=== PATIENT | female | born 1985 | race African-American/Black ===

== ENCOUNTER 2021-03-21 03:43 | Inpatient (IN) | payer MEDICAID ==
[~2021-03-21] VITALS: Ht 162.6 cm; Wt 103.5 kg
[~2021-03-21 03:43] MED LIST: ACET1TAB43 PO; DOCU100C37 PO; FERR325T18 PO; IBUP-1773 PO; LABE200T7 PO; PREN1TAB71 PO; VALA500T4 PO
[2021-03-21] MEDS ORDERED: NITRO DRIP 25000 MCG/D5W 250 ML IV ONE (05:15)
[2021-03-21 07:42] LABS: BASOPHILS % (AUTO) 0 % (0-10); EOSINOPHILS # (AUTO) 0.2 10^3/uL (0.0-0.3); EOSINOPHILS % (AUTO) 2 % (0-10); HEMATOCRIT 39 % (35-52); HEMOGLOBIN 12.6 g/dL (11.5-16.0); LYMPHOCYTES # (AUTO) 2.9 10^3/uL (1.0-4.0); LYMPHOCYTES % (AUTO) 32 % (12-44); MEAN CORPUSCULAR HEMOGLOBIN 29 pg (25-34); MEAN CORPUSCULAR HGB CONC 32 g/dL (32-36); MEAN CORPUSCULAR VOLUME 89 fL (80-99); MEAN PLATELET VOLUME 11.1 fL (9.0-12.2); MONOCYTES # (AUTO) 0.4 10^3/uL (0.0-1.0); MONOCYTES % (AUTO) 5 % (0-12); NEUTROPHILS # (AUTO) 5.5 10^3/uL (1.8-7.8); NEUTROPHILS % (AUTO) 61 % (42-75); PLATELET COUNT 230 10^3/uL (130-400); WHITE BLOOD COUNT 9.1 10^3/uL (4.3-11.0)
[2021-03-21 07:58] LABS: CALCIUM 8.6 MG/DL (8.5-10.1); CREATININE SERUM 0.82 MG/DL (0.60-1.30); POTASSIUM 3.7 MMOL/L (3.6-5.0)
[2021-03-21] MEDS: NITRO DRIP 25000 MCG/D5W 250 ML IV SCH (08:00)
[2021-03-21] MEDS ORDERED: ASPIRIN E.C. 81 MG (ECOTRIN) TAB PO SCH (09:00)
--- NOTE | 2021-03-21 09:21 | Consultation-Cardiology ---
HPI-Cardiology Cardiology Consultation: Date of Consultation 03/21/2021 Date of Admission 03/21/2021 Attending Physician Noemi Sheppard MD Admitting Physician No,Local Physician Consulting Physician JOSE E PAZ JR, MD HPI: Time Seen by a Provider: 09:17 Chief Complaint: Reason for consultation: Chest pain and abnormal troponin level. I had the pleasure of seeing Rachael in the intensive care unit at [facility] in [place], [place] this morning. She has a history of hypertension, chronic back pain, obesity, and cigarette smoking. She has no known history of coronary artery disease. 3 days ago she started having right shoulder pain. She has chronic right shoulder pain only this time the pain was worse. She could not lift her hand above her head. She was also feeling somewhat short of breath. She also had back pain all the way down to her lumbar area but not into her legs. She called into work for the next 2 days because she just was not fe eling well. The second day she started to feel better. Yesterday when she got out of bed she felt a fluttering sensation in her chest. She felt as though her heart was vibrating. This lasted for about 1 minute. She denied associated symptoms. She got ready for work and went to work. She was feeling okay at work but then started having sharp pains in the center of her chest. This felt like the center of her chest was being pinched. She was also having shooting pains up into the right side of her neck. She felt as though her blood pressure might be elevated but she did not actually check her blood pressure. She became concerned and went to an outside emergency room for further evaluation. Her blood pressure was markedly elevated at 260 mmHg systolic. She was given medication at the outside emergency room to lower her blood pressure and then her troponin level came back positive. She was then transferred to our hospital for further evaluation. Overnight, her chest discomfort seems to have resolved. She still has the right shoulder pain but this is better. She still has intermittent back pain. Her breathing is about the same. She thought her shortness of breath was because she had been smoking more cigarettes than usual. She denies paroxysmal nocturnal dyspnea, orthopnea, lightheadedness, syncope, or ankle edema. She denies using methamphetamine or cocaine. Certain portions of this document may have been dictated utilizing voice recognition technology. Inherent to this technology, typographical and grammatical errors may exist. As much as I am diligent to identify and correct these mistakes, some errors may remain in the document. Review of Systems-Cardiology Review of Systems Other comments Review of 10 organ systems is as per the history of present illness, otherwise negative. OUD-Tgksyd-Ujcmze Hx Patient Social History Smoking Status: Current Everyday Smoker 2nd Hand Smoke Exposure: No Have you traveled recently?: No Alcohol Use?: No Substance type: Marijuana Pt feels they are or have been: No Tobacco type used: Cigarettes Immunizations Up To Date Tetanus Booster (TDap): Less than 5yrs Past Medical History PMH As described under Assessment. Family Medical History Family Medical History: She is adopted. Family History: Patient reports no known family medical history. Allergies and Home Medications Allergies Coded Allergies: No Known Drug Allergies (Unverified , 11/13/15) Patient Home Medication List Home Medication List Reviewed: Yes Acetaminophen with Codeine (Acetaminophen-Cod #3 Tablet) 1 Each Tablet, 1-2 TAB PO Q4H PRN for MODERATE TO SEVERE PAIN Prescribed by: SHELLI BELLA on 11/14/15 1043 Docusate Sodium (Docusate Sodium) 100 Mg Capsule, 100 MG PO BID PRN for CONSTIPATION Prescribed by: SHELLI BELLA on 11/14/15 1043 Ferrous Sulfate (Ferrous Sulfate) 325 Mg Tablet, 325 MG PO DAILY@0700 Prescribed by: SHELLI BELLA on 11/14/15 1043 Ibuprofen (Ibuprofen) 600 Mg Tablet, 600 MG PO Q6H Prescribed by: SHELLI BELLA on 11/14/15 1043 Labetalol HCl (Labetalol HCl) 200 Mg Tablet, 200 MG PO BID Prescribed by: DEVAUGHN ARGUETA on 11/21/15 1017 Last Action: Last Taken Edited Discontinued Medications Vit/Iron Fumarate/FA ( Vitamin Tablet) 1 Each Tablet, 1 EACH PO DAILY, (Reported) Discontinued Reason: No Longer Taking Entered as Reported by: ODILIA SHAH on 11/13/15 0629 Last Action: Discontinued Exam Vital Signs Vital Signs Date Time Temp Pulse Resp B/P (MAP) Pulse Ox O2 Delivery O2 Flow Rate FiO2 03/21/21 08:00 71 19 172/101 95 Room Air 03/21/21 04:50 36.8 Physical Exam General: Alert. No acute distress. Well nourished and appears stated age. She is obese. Eye: Extraocular movements are intact. Conjunctivae are clear. There are no xanthelasma. HENT: Normocephalic. Atraumatic. Carotid pulsations 2/2 without bruits. Neck: Jugular venous pressure does not appear elevated. No thyromegaly appreciated. Respiratory: Lungs are clear to auscultation. Respirations are non-labored. Breath sounds are equal. Symmetrical chest wall expansion. Cardiovascular: Normal rate. Regular rhythm. No murmur. No gallop. Point of maximal impulse is not appear displaced. Good pulses equal in all extremities. No edema. Gastrointestinal: Soft. Normal bowel sounds. Skin: Skin turgor is normal. There is no pallor. Musculoskeletal: No kyphosis or scoliosis appreciated. Neurologic: Alert and oriented to person, place, time. Cranial nerves 3-12 appear grossly intact. The patient has good motor tone strength in the upper and lower extremities bilaterally. Psychiatric: Cooperative. Appropriate mood & affect. Labs Laboratory Tests Test 03/21/21 06:24 03/21/21 06:27 03/21/21 07:24 03/21/21 07:27 Range/Units White Blood Count 9.1 4.3-11.0 10^3/uL Red Blood Count 4.40 3.80-5.11 10^6/uL Hemoglobin 12.6 11.5-16.0 g/dL Hematocrit 39 35-52 % Mean Corpuscular Volume 89 80-99 fL Mean Corpuscular Hemoglobin 29 25-34 pg Mean Corpuscular Hemoglobin Concent 32 32-36 g/dL Red Cell Distribution Width 14.2 10.0-14.5 % Platelet Count 230 130-400 10^3/uL Mean Platelet Volume 11.1 9.0-12.2 fL Immature Granulocyte % (Auto) 0 % Neutrophils (%) (Auto) 61 42-75 % Lymphocytes (%) (Auto) 32 12-44 % Monocytes (%) (Auto) 5 0-12 % Eosinophils (%) (Auto) 2 0-10 % Basophils (%) (Auto) 0 0-10 % Neutrophils # (Auto) 5.5 1.8-7.8 10^3/uL Lymphocytes # (Auto) 2.9 1.0-4.0 10^3/uL Monocytes # (Auto) 0.4 0.0-1.0 10^3/uL Eosinophils # (Auto) 0.2 0.0-0.3 10^3/uL Basophils # (Auto) 0.0 0.0-0.1 10^3/uL Immature Granulocyte # (Auto) 0.0 0.0-0.1 10^3/uL Sodium Level 139 135-145 MMOL/L Potassium Level 3.7 3.6-5.0 MMOL/L Chloride Level 109 H 98-107 MMOL/L Carbon Dioxide Level 21 21-32 MMOL/L Anion Gap 9 5-14 MMOL/L Blood Urea Nitrogen 11 7-18 MG/DL Creatinine 0.82 0.60-1.30 MG/DL Estimat Glomerular Filtration Rate 95 BUN/Creatinine Ratio 13 Glucose Level 88 70-105 MG/DL Calcium Level 8.6 8.5-10.1 MG/DL Magnesium Level 2.0 1.6-2.4 MG/DL Troponin I 0.034 H <0.028 NG/ML Triglycerides Level 133 <150 MG/DL Cholesterol Level 167 < 200 MG/DL LDL Cholesterol Direct 133 H 1-129 MG/DL VLDL Cholesterol 27 5-40 MG/DL HDL Cholesterol 23 L 40-60 MG/DL ECG Impression ECG Comment Sinus rhythm with left atrial abnormality, nonspecific intraventricular conduction delay, left ventricular hypertrophy with strain pattern and poor R wave progression. Diagnosis/Problems Diagnosis/Problems (1) Chest pain Assessment & Plan: Exact etiology unclear. She does have elevated troponin levels but this is in the setting of an hypertensive emergency. She has risk factors of hypertension and cigarette smoking. I will obtain another troponin level later this morning. I will also obtain an echocardiogram. In light of the radiation of chest pain to her back or just the back pain itself, I will also have her undergo a CT angiogram of the chest and abdomen to exclude aortic dissection. I will start her on low strength aspirin. I will resume her labetalol but at a higher dose. We can taper off the nitroglycerin. If her troponin level continues to climb, then we may need to consider further evaluation with a cardiac catheterization. (2) Hypertensive emergency without congestive heart failure Assessment & Plan: She had markedly elevated blood pressure at the outside hospital. Her blood pressure has now improved on intravenous nitroglycerin. As above, I will increase her dose of labetalol which she was taking at home and transition her off IV nitroglycerin. We may need to add additional a ntihypertensive agents if her blood pressure remains elevated. (3) Troponin level elevated Assessment & Plan: Unclear whether or not this is non-ST elevation myocardial infarction. This could be a type II non-ST elevation myocardial infarction due to the severe hypertension at the outside hospital. We will proceed as above. (4) Abnormal ECG Assessment & Plan: Her electrocardiogram shows signs of left ventricular hypert rophy with repolarization abnormality versus possible ischemia and poor R wave progression. There is no evidence of a STEMI. We will proceed as above. (5) Primary hypertension Assessment & Plan: As above. (6) Obesity Assessment & Plan: She needs to work on weight loss. (7) Cigarette smoker Assessment & Plan: She needs to quit smoking. She was counseled in this regard. JOSE E PAZ JR, MD Mar 21, 2021 09:21
[2021-03-21] MEDS ORDERED: HOLD METFORMIN - RECEIVED CONTRAST 20 ML VIAL IV SCH (09:30)
[2021-03-21] MEDS ORDERED: NS 100 ML (IVPB) BAG IV ONE (09:30)
[2021-03-21] MEDS ORDERED: IOHEXOL 350 MG/ML 100 ML (OMNIPAQUE 350) VIAL IV ONE (09:30)
--- NOTE | 2021-03-21 10:17 | Diagnostic Imaging Report ---
Clinical Indication: Patient with hypertensive emergency with chest and back pain. Patient had lower back surgery. Exam: CT angiogram of the chest an abdomen performed with 83 cc Omnipaque 350 IV contrast. Coronal and oblique MIP images of the vasculature were created to better evaluate anatomy. Auto Exposure Controls were utilized during the CT exam to meet ALARA standards for radiation dose reduction. Comparison: None. Findings: There is a 13 mm low-density nodule involving the left thyroid lobe. There is no mediastinal, hilar or axillary lymphadenopathy. There is mild atelectasis involving the posterior aspects of both lungs. Otherwise, the lungs are clear. There is no pleural effusion or pneumothorax. Pulmonary arteries are unremarkable as visualized. There is motion artifact slightly obscuring the thoracic aorta. Three-vessel aortic arch is seen. The cervical left vertebral artery arises low from the proximal left subclavian artery. There is no thoracic aortic aneurysm or dissection. There is no extrathoracic soft tissue abnormality. Thoracic spine and rib bony structures are unremarkable. The abdominal aorta, celiac artery, SMA, bilateral renal arteries, RUT, bilateral common iliac arteries and proximal bilateral internal and external iliac arteries are patent with no significant stenosis, dissection, or aneurysm. The liver, spleen, pancreas, and adrenal glands are unremarkable. There are multiple gallstones throughout the gallbladder. The gallbladder is decompressed. Largest stone measures roughly 15 [address]. There is no [address] evidence of cholecystitis. Both kidneys are unremarkable with no hydronephrosis or mass. The visualized upper abdominal structures show no other significant abnormality. There is no intestinal obstruction. Appendix is unremarkable. There is no intra-abdominal free air or free fluid. There is no lymphadenopathy. The extra abdominal structures are unremarkable. IMPRESSION: 1: There is no evidence of pulmonary embolism. There is no evidence of thoracic or abdominal aortic aneurysm or dissection. Visualized vascular structures show no significant stenosis. 2: Mild bibasilar atelectasis. Otherwise, the lungs are clear. 3: There is a 13 mm low-density left thyroid lobe nodule. Nonemergent thyroid ultrasound would better evaluate. 4: Cholelithiasis with no CT evidence of cholecystitis. Dictated by: Dictated on workstation # [id number]
[2021-03-21] MEDS: LABETALOL 200 MG (NORMODYNE) TAB PO SCH ×2 (10:25→20:04)
[2021-03-21] MEDS: ASPIRIN E.C. 81 MG (ECOTRIN) TAB PO SCH (10:25)
--- NOTE | 2021-03-21 11:03 | History & Physical-Hospitalist ---
History of Present Illness HPI/Chief Complaint Rachael Pappas is a 36 year old female with PMH HTN who presented with chest pain. She went to the ER in [place]. She reports having a fluttering sensation in her chest yesterday. She says it radiated to her bilateral shoulders. This pain resolved but then she developed a sharp chest pain. She denies shortness of breath. She denies nausea and vomiting. She denies diaphoresis. She has high blood pressure but has not been taking her medication. She smokes cigarettes. She denies drinking and illicit drug use. Source: patient Exam Limitations: no limitations Date Seen 03/21/21 Time Seen by a Provider: 10:30 Attending Physician Noemi Cardoso MD PCP No,Local Physician Referring Physician Date of Admission Mar 21, 2021 at 04:42 Home Medications & Allergies Home Medications Reviewed patient Home Medication Reconciliation performed by pharmacy medication reconciliations analytical lab technician and/or nursing. Patients Allergies have been reviewed. Allergies Allergies Coded Allergies No Known Drug Allergies (Unverified11/13/15) Past Pighzyb-Iqeaki-Hbgdby Hx Patient Social History Tobacco Use?: Yes Tobacco type used: Cigarettes Smoking Status: Current Everyday Smoker Smokeless Tobacco Frequency: Never a User Use of E-Cig and/or Vaping dev: No Substance use?: No Substance type: Marijuana Substance frequency: Rarely Alcohol Use?: No Pt feels they are or have been: No Immunizations Up To Date Hepatitis A: No Hepatitis B: No PED Vaccines UTD: No Current Status status: No status: No Advance Directives: No Communicates: Verbally Primary Language: Macedonian Sensory deficits: Vision impairment Implanted or Applied Medical D: None Past Medical History Hypertension Sexually Transmitted Disease: Yes HIV/AIDS: No Adverse Reaction/Blood Tranf: No HSV as above Family Medical History Patient reports no known family medical history. No Pertinent Family Hx Review of Systems Constitutional: no symptoms reported EENTM: no symptoms reported Respiratory: no symptoms reported Cardiovascular: chest pain, palpitations Gastrointestinal: no symptoms reported Genitourinary: no symptoms reported Musculoskeletal: no symptoms reported Skin: no symptoms reported Psychiatric/Neurological: No Symptoms Reported Physical Exam Physical Exam Vital Signs Vital Signs - First Documented Capillary Refill : Height, Weight, BMI Height: 5'4.00" Weight: 180lbs. 0.0oz. 81.492102uu; 39.14 BMI Method: General Appearance: No Apparent Distress, Obese HEENT: PERRL/EOMI, Pharynx Normal Neck: Normal Inspection, Supple Respiratory: Lungs Clear, Normal Breath Sounds, No Respiratory Distress Cardiovascular: Regular Rate, Rhythm, No Edema, No Murmur Gastrointestinal: Normal Bowel Sounds, Non Tender, Soft Extremity: Normal Inspection, Non Tender, No Pedal Edema Neurologic/Psychiatric: Alert, Oriented x3, No Motor/Sensory Deficits, Normal Mood/Affect Skin: Normal Color, Warm/Dry Results Results/Procedures Labs Laboratory Tests 03/21/21 06:24 Patient resulted labs reviewed. Imaging: Reviewed Imaging Report Assessment/Plan Admission Diagnosis Hypertensive emergency Admission Status: Inpatient Order (span 2 midnights) Reason for Inpatient Admission: IV medications and possible cardiology intervention Assessment and Plan Hypertensive emergency Elevated troponin Started on IV Nitroglycerin Begin home dose Labetalol Troponin elevated Cardiology consulted Thyroid nodule CT revealed nodule Recommend outpatient follow up with ultrasound Cholelithiasis Asymptomatic Tobacco abuse Nicotine patch Obesity Clinically significant, no acute management needs DVT prophylaxis: Lovenox Diagnosis/Problems Diagnosis/Problems (1) Hypertensive emergency without congestive heart failure Status: Acute (2) Chest pain Status: Acute (3) Troponin level elevated Status: Acute (4) Primary hypertension Status: Acute (5) Obesity Status: Chronic (6) Cigarette smoker Status: Chronic NOEMI CARDOSO MD Mar 21, 2021 11:03
--- NOTE | 2021-03-21 11:08 | Tele-ICU Consult ---
History of Present Illness History of Present Illness Date Seen by Provider: Mar 21, 2021 Time Seen by Provider: 11:03 Date of Admission 03/21/21 History of Present Illness She is a 36-year-old -[place] female with past medical history of hypertension and obesity was transferred from [facility] due to chest pain. Apparently she is having chest pain for the last 3 days associated with the right shoulder pain. She also has a back pain. She went to [facility] where she was initially evaluated and EKG showed T wave inversions and troponin elevation and she is transferred to this institute for higher level of care. Now her chest pain is somewhat better. She was given Lovenox at [facility]. Today booster plant operator has seen her and evaluated for any dissection of the aorta with a CT angio of the abdomen and chest on the report of which is pending. But upon my review via computer I did not see any evidence of dissection. Currently she is resting somewhat comfortably with a little discomfort in the chest. She is getting IV nitroglycerin, aspirin. No telemetry ICU consult is requested. Patient has been a smoker 1 pack/day for several years. She has no known history of diabetes. She does not know the family history as she is adopted. Video visit made and discussed with patient and also with horticultural worker No Tele icu consult requested Allergies and Home Medications Allergies Coded Allergies: No Known Drug Allergies (Unverified , 11/13/15) Home Medications Acetaminophen with Codeine 1 Each Tablet, 1-2 TAB PO Q4H PRN for MODERATE TO SEVERE PAIN Prescribed by: SHELLI BELLA on 11/14/15 1043 Docusate Sodium 100 Mg Capsule, 100 MG PO BID PRN for CONSTIPATION Prescribed by: SHELLI BELLA on 11/14/15 1043 Ferrous Sulfate 325 Mg Tablet, 325 MG PO DAILY@0700 Prescribed by: SHELLI BELLA on 11/14/15 1043 Ibuprofen 600 Mg Tablet, 600 MG PO Q6H Prescribed by: SHELLI BELLA on 11/14/15 1043 Labetalol HCl 200 Mg Tablet, 200 MG PO BID Prescribed by: DEVAUGHN ARGUETA on 11/21/15 1017 Past Medical/Social/Family Hx Patient Social History Tobacco Use?: Yes Tobacco type used: Cigarettes Smoking Status: Current Everyday Smoker Smokeless Tobacco Frequency: Never a User Use of E-Cig and/or Vaping dev: No Substance use?: No Substance type: Marijuana Substance frequency: Rarely Alcohol Use?: No Pt stated abuse/neglect: No Immunizations Up To Date Influenza Vaccine Up-to-Date: No; Not Current Hepatitis A: No Hepatitis B: No TB Skin Test: Negative Current Status status: No status: No Advance Directives: No Communicates: Verbally Primary Language: Canadian Sensory deficits: Vision impairment Implanted or Applied Medical D: None Past Medical History HSV as above Review of Systems Constitutional: see HPI Other ROS PER ATTENDING Sepsis Event Evaluation Height, Weight, BMI Height: 5'4.00" Weight: 180lbs. 0.0oz. 81.442712ry; 39.14 BMI Method: Exam Exam Patient acknowledged, consented, and participated in this virtual visit which was conducted using real time audio/video Vital Signs Date Time Temp Pulse Resp B/P (MAP) Pulse Ox O2 Delivery O2 Flow Rate FiO2 03/21/21 10:00 72 17 186/110 97 Room Air 03/21/21 09:00 71 16 176/117 96 Room Air 03/21/21 08:00 71 19 172/101 95 Room Air 03/21/21 08:00 71 176/117 03/21/21 07:00 73 18 128/76 93 Room Air 03/21/21 07:00 74 03/21/21 06:15 181/115 03/21/21 06:00 69 19 181/115 95 Room Air 03/21/21 05:00 75 16 164/104 97 Room Air 03/21/21 04:50 99 Room Air 03/21/21 04:50 36.8 68 16 191/112 97 Room Air I & O 03/21/21 07:00 Intake Total 0 ml Balance 0 ml Height & Weight Height: 5'4.00" Weight: 180lbs. 0.0oz. 81.636574bl; 39.14 BMI Method: General Appearance: No Apparent Distress Other comments PER ATTENDING PHYSICIAN Results Lab Laboratory Tests 03/21/21 06:24 Assessment/Plan Assessment/Plan 1. Uncontrolled hypertension 2. Chest pain possibly due to non-STEMI 3. Morbid obesity 4. Rule out any dissection of her aorta. 5. Tobacco abuse disorder. Recommendations 1. Continue nitroglycerin and aspirin per cardiology Get an echocardiogram 3. Possible coronary angiogram per cardiology 4. Check hemoglobin A1c and lipid profile and keep LDL less than 70 5. Advised her to quit smoking and counseling done over the video visit. 6. Anticoagulation per cardiology once dissection of the aorta is ruled out. Critical Care: Critically Ill Patient Time spent with patient (mins): 35 ANNY MIRELES MD Mar 21, 2021 11:08
[2021-03-21] MEDS: ACETAMINOPHEN 325 MG TABLET PO PRN (12:58)
[2021-03-21] MEDS ORDERED: ENOXAPARIN 40 MG/0.4 ML (LOVENOX) SYR SC SCH (21:30)
[2021-03-21] MEDS ORDERED: NICOTINE 2 MG LOZENGE (COMMIT) MM PRN (21:30)
[2021-03-21] MEDS ORDERED: REGADENOSON 0.4 MG/5 ML SYR (LEXISCAN) IV ONE (21:45)
[2021-03-22] MEDS: ACETAMINOPHEN 325 MG TABLET PO PRN (00:11)
[2021-03-22] MEDS: NITRO DRIP 25000 MCG/D5W 250 ML IV SCH (00:14)
[2021-03-22] MEDS ORDERED: ONDANSETRON 4 MG/2 ML (SDV) Z0FRAN ONE ×2 (01:35→04:36)
[2021-03-22] MEDS ORDERED: ONDANSETRON 4 MG/2 ML (SDV) Z0FRAN IVP ONE (01:45)
--- NOTE | 2021-03-22 01:45 | Tele-ICU Progress Note ---
Progress Note Pt c/o nause, on NTG drip for Uncontrolled BP. Zofran ordered. Titrate NTG to BP systolics 160s. d/w the bedside nurse. Troponin trending down , On PO Labetalol. No CP at this time. Interventions Minor-Other: Nausea Focused Exam Height, Weight, BMI Height: 5'4.00" Weight: 180lbs. 0.0oz. 81.177942uk; 39.14 BMI Method: REX FLETCHER MD Mar 22, 2021 01:45
--- NOTE | 2021-03-22 02:08 | Tele-ICU Progress Note ---
Progress Note Pt is c/o of headache and requesting pain meds. Will wean NTG , add Amoldipine 5 mg PO now. Pt is refusing Morphine. Fentanyl 25 mcg x 1 ordered, for headache which is probably due to NTG. Interventions Minor-Other: Headache Focused Exam Height, Weight, BMI Height: 5'4.00" Weight: 180lbs. 0.0oz. 81.577767go; 39.14 BMI Method: REX FLETCHER MD Mar 22, 2021 02:08
[2021-03-22] MEDS ORDERED: fentaNYL INJ 100 MCG/2 ML AMP IVP ONE (02:15)
[2021-03-22] MEDS ORDERED: amLODIPine 5 MG (NORVASC) TAB PO ONE (02:15)
[2021-03-22] MEDS ORDERED: niCARdipine IV FOR DRIP 50 MG KIT ONE (04:37)
[2021-03-22] MEDS ORDERED: NS (IVPB) 250 ML ONE (04:38)
[2021-03-22] MEDS ORDERED: fentaNYL INJ 100 MCG/2 ML AMP ONE (04:39)
[2021-03-22 04:45] LABS: BASOPHILS % (AUTO) 0 % (0-10); EOSINOPHILS # (AUTO) 0.2 10^3/uL (0.0-0.3); EOSINOPHILS % (AUTO) 2 % (0-10); HEMATOCRIT 37 % (35-52); HEMOGLOBIN 11.8 g/dL (11.5-16.0); LYMPHOCYTES # (AUTO) 2.5 10^3/uL (1.0-4.0); LYMPHOCYTES % (AUTO) 29 % (12-44); MEAN CORPUSCULAR HEMOGLOBIN 28 pg (25-34); MEAN CORPUSCULAR HGB CONC 32 g/dL (32-36); MEAN CORPUSCULAR VOLUME 89 fL (80-99); MEAN PLATELET VOLUME 11.5 fL (9.0-12.2); MONOCYTES # (AUTO) 0.4 10^3/uL (0.0-1.0); MONOCYTES % (AUTO) 4 % (0-12); NEUTROPHILS # (AUTO) 5.6 10^3/uL (1.8-7.8); NEUTROPHILS % (AUTO) 64 % (42-75); PLATELET COUNT 218 10^3/uL (130-400); WHITE BLOOD COUNT 8.7 10^3/uL (4.3-11.0)
[2021-03-22] MEDS ORDERED: fentaNYL INJ 100 MCG/2 ML AMP IVP PRN ×2 (04:45)
[2021-03-22] MEDS: niCARdipine IV 50 MG in NS (IVPB) 230 ML IV SCH ×2 (04:45→15:38)
[2021-03-22 04:56] LABS: POTASSIUM 3.9 MMOL/L (3.6-5.0)
[2021-03-22 04:57] LABS: CALCIUM 8.5 MG/DL (8.5-10.1)
--- NOTE | 2021-03-22 05:00 | Tele-ICU Progress Note ---
Progress Note E-alert called as Pt was crying and c/o headache. Apparently BP was controlled and NTG was discontinued after giving Amlodipine, Pt states that she had panic attack and started crying. Fentanyl 25 mcg IVP given for headache and BP 215s--189/106, Nicardipine drip started to control SBP to 160-170. D/W the bedside nurse. If headache persists she will need a CT scan of head. Currently Pt is calm and occasionally sobbing. Interventions Minor-Other: HTN uncontrolled, Panic attack Page 1 of 1 FAHEEM LASSITER [address] [facility]-ICU This is a permanent part of the medical record. Do not discard. 03/22/2021 04:59 THC Physician - Brief Progress Note Focused Exam Height, Weight, BMI Height: 5'4.00" Weight: 180lbs. 0.0oz. 81.278826jo; 39.14 BMI Method: REX FLETCHER MD Mar 22, 2021 05:00
[2021-03-22 05:02] LABS: CREATININE SERUM 0.8 MG/DL (0.60-1.30)
[2021-03-22] MEDS ORDERED: KCL 20 MEQ TAB (K-DUR) PO SCH (06:00)
[2021-03-22] MEDS ORDERED: MAGNESIUM 1 GM/100 ML IVPB 100 ML IV SCH (06:00)
[2021-03-22] MEDS ORDERED: POTASSIUM CL 10MEQ/50ML IVPB 50 ML IV SCH (06:00)
[2021-03-22 06:06] LABS: PHOSPHORUS 2.7 MG/DL (2.3-4.7)
[2021-03-22] MEDS ORDERED: CATHETER FLUSH 10 ML SYR IV PRN (07:00)
--- NOTE | 2021-03-22 07:25 | Diagnostic Imaging Report ---
PROCEDURE: CT head without contrast. TECHNIQUE: Multiple contiguous axial images were obtained through the brain without the use of intravenous contrast. Auto Exposure Controls were utilized during the CT exam to meet ALARA standards for radiation dose reduction. INDICATION: Severe headache CT HEAD: CT images of the head were obtained. FINDINGS: Ventricles and sulci are within normal limits for size. There is no intracranial hemorrhage identified. There is no abnormal mass effect or shift of midline structures. There is mild depression of left lamina papyracea without associated hematoma. Visualized paranasal sinuses and mastoid air cells are clear. IMPRESSION: No acute intracranial abnormalities identified. There is depression of left lamina papyracea could be related to injury of indeterminate age. Dictated by: Dictated on workstation # [id number]
[2021-03-22] MEDS ORDERED: REGADENOSON 0.4 MG/5 ML SYR (LEXISCAN) IV ONE (08:10)
[2021-03-22] MEDS ORDERED: NICOTINE 14 MG (NICODERM) PATCH TD SCH (09:00)
[2021-03-22] MEDS ORDERED: ENOXAPARIN 40 MG/0.4 ML (LOVENOX) SYR SC SCH (09:00)
[2021-03-22] MEDS: ASPIRIN E.C. 81 MG (ECOTRIN) TAB PO SCH (09:34)
[2021-03-22] MEDS: LABETALOL 200 MG (NORMODYNE) TAB PO SCH (09:34)
[2021-03-22] MEDS ORDERED: HYDROcodone/APAP 5 MG/325 MG (LORTAB) TAB PO PRN (10:30)
--- NOTE | 2021-03-22 11:11 | Progress Note - Hospitalist ---
Subjective HPI/CC On Admission Date Seen by Provider: Mar 22, 2021 Time Seen by Provider: 11:08 Rachael Pappas is a 36 year old female with PMH HTN who presented with chest pain. She went to the ER in [place]. She reports having a fluttering sensation in her chest yesterday. She says it radiated to her bilateral shoulders. This pain resolved but then she developed a sharp chest pain. She denies shortness of breath. She denies nausea and vomiting. She denies diaphoresis. She has high blood pressure but has not been taking her medication. She smokes cigarettes. She denies drinking and illicit drug use. Subjective/Events-last exam Pt reports doing well. No cardiac complaints today. Did have headache overnight and was very anxious. Does have some shoulder pain which is chronic for her. Objective Exam Vital Signs Vital Signs Date Time Temp Pulse Resp B/P (MAP) Pulse Ox O2 Delivery O2 Flow Rate FiO2 03/22/21 10:00 75 18 127/85 99 Room Air 03/22/21 08:00 36.7 Capillary Refill : General Appearance: No Apparent Distress, Obese Respiratory: Lungs Clear, No Respiratory Distress Cardiovascular: Regular Rate, Rhythm, No Murmur Neurologic/Psychiatric: Alert, Oriented x3 Results/Procedures Lab Laboratory Tests 03/22/21 04:15 Patient resulted labs reviewed. Imaging: Reviewed Imaging Report Assessment/Plan Assessment and Plan Assess & Plan/Chief Complaint Hypertensive emergency Elevated troponin Resume home labetalol Currently on cardene, wean as able Troponin elevated Stress negative Cardiology consulted, appreciate assistance Thyroid nodule CT revealed nodule Recommend outpatient follow up with ultrasound Cholelithiasis Asymptomatic Tobacco abuse Nicotine patch Chronic shoulder pain resume home hydrocodone Obesity Clinically significant, no acute management needs DVT prophylaxis: Lovenox Critical Care Critically Ill Patient Diagnosis/Problems Diagnosis/Problems (1) Hypertensive emergency without congestive heart failure Status: Acute (2) Troponin level elevated Status: Acute (3) Primary hypertension Status: Acute (4) Obesity Status: Chronic (5) Cigarette smoker Status: Chronic DESMOND CARREON MD Mar 22, 2021 11:11
[2021-03-22] MEDS ORDERED: NAPR220C11 PO (11:17)
[2021-03-22] MEDS ORDERED: LABE200T7 PO ×2 (11:17→16:55)
--- NOTE | 2021-03-22 12:56 | NUCLEAR STRESS TEST ---
REGADENOSON NUCLEAR STRESS Date of procedure: 03/22/2021. Primary care provider: No local physician Admitting physician: Richard Krishnamurthy Jr., MD. INDICATION: Abnormal troponin level. BASELINE ELECTROCARDIOGRAM: Sinus rhythm with left ventricular hypertrophy with repolarization abnormality versus ischemia and possible old anterior myocardial infarction. STRESS TEST PROCEDURE: The patient was administered 0.4 mg of intravenous Regadenoson. The resting heart rate was 74 bpm and the peak heart rate was 98 bpm. The resting blood pressure was 179/94 mmHg and the minimum blood pressure was 162/101 mmHg. This represents a normal heart rate and a normal blood pressure response to Regadenoson with resting hypertension. The test was sto pped due to the protocol. There was no chest discomfort during the test. There were no arrhythmias during the test. The stress electrocardiogram was indeterminate due to the baseline abnormalities. NUCLEAR PROCEDURE: The patient was administered 10.7 mCi of intravenous technetium 99m Tetrofosmin at rest for the rest images. The patient was subsequently administered 32.7 mCi of intravenous technetium 99m Tetrofosmin at peak stress for the stress images. Following an appropriate wait after each injection, imaging was obtained. The images were subsequently processed and reformatted in the usual views. Gated imaging was obtained. The image quality was adequate but with some degree of gastrointestinal and breast attenuation artifacts. CT attenuation correction was used as a adjunct to standard imaging. Both the corrected and uncorrected images were reviewed for interpretation. NUCLEAR RESULTS: There was normal myocardial perfusion in all segments without evidence of infarction or ischemia. There was normal left ventricular chamber size with an end-diastolic volume of 94 mL and an end-systolic volume of 35 mL. There was no evidence of transient ischemic dilatation. The TID ratio was 1.21. There was normal wall motion in all segments with a calculated ejection fraction of 63%. IMPRESSION: 1. Normal heart rate and blood pressure response to regadenoson with resting hypertension. 2. There was no chest discomfort or arrhythmias during the test. 3. The stress electrocardiogram was indeterminate due to the baseline abnormalities. 4. There was normal myocardial perfusion in all segments without evidence of infarction or ischemia. 5. There was normal wall motion in all segments with a calculated ejection fraction of 63%. Certain portions of this document may have been dictated utilizing voice recognition technology. Inherent to this technology, typographical and grammatical errors may exist. As much as I am diligent to identify and correct these mistakes, some errors may remain in the document. RICHARD KRISHNAMURTHY JR, MD Mar 22, 2021 12:56
--- NOTE | 2021-03-22 16:08 | Cardiology Progress Note ---
Progress Note-Cardiology Events since last exam Date Seen by Provider: Mar 22, 2021 Time Seen by Provider: 16:03 Events since last exam I am following her for chest discomfort, severe hypertension and elevated tro ponin. Overnight, her chest discomfort resolved. She was placed on intravenous Cardene last evening and this has now been transitioned to off. She denies dyspnea, palpitations, syncope, or ankle edema. She would like to go home today if possible. Certain portions of this document may have been dictated utilizing voice recognition technology. Inherent to this technology, typographical and gra mmatical errors may exist. As much as I am diligent to identify and correct these mistakes, some errors may remain in the document. Vitals Last set of Vitals Signs Vital Signs 03/22/21 03/22/21 13:15 14:00 Temp 36.9 Pulse 75 Resp 24 B/P (MAP) 148/80 Pulse Ox 98 O2 Delivery Room Air Labs Labs Laboratory Tests 03/22/21 04:15 Exam Vital Signs Vital Signs Date Time Temp Pulse Resp B/P (MAP) Pulse Ox O2 Delivery O2 Flow Rate FiO2 03/22/21 14:00 75 24 148/80 98 Room Air 03/22/21 13:15 36.9 Physical Exam General: Alert. No acute distress. She is obese. Eye: No xanthelasma. HENT: Normocephalic. Neck: Jugular venous pressure does not appear elevated. Respiratory: Lungs are clear to auscultation. Respirations are non-labored. Breath sounds are equal. Symmetrical chest wall expansion. Cardiovascular: Normal rate. Regular rhythm. No murmur. No gallop. No edema. Gastrointestinal: Soft. Normal bowel sounds. Skin: Warm. Dry. Neurologic: Alert and oriented to person, place, time. Cranial nerves 3-11 grossly intact. Psychiatric: Cooperative. Appropriate mood & affect. Labs Laboratory Tests Test 03/22/21 04:15 Range/Units White Blood Count 8.7 4.3-11.0 10^3/uL Red Blood Count 4.16 3.80-5.11 10^6/uL Hemoglobin 11.8 11.5-16.0 g/dL Hematocrit 37 35-52 % Mean Corpuscular Volume 89 80-99 fL Mean Corpuscular Hemoglobin 28 25-34 pg Mean Corpuscular Hemoglobin Concent 32 32-36 g/dL Red Cell Distribution Width 14.2 10.0-14.5 % Platelet Count 218 130-400 10^3/uL Mean Platelet Volume 11.5 9.0-12.2 fL Immature Granulocyte % (Auto) 0 % Neutrophils (%) (Auto) 64 42-75 % Lymphocytes (%) (Auto) 29 12-44 % Monocytes (%) (Auto) 4 0-12 % Eosinophils (%) (Auto) 2 0-10 % Basophils (%) (Auto) 0 0-10 % Neutrophils # (Auto) 5.6 1.8-7.8 10^3/uL Lymphocytes # (Auto) 2.5 1.0-4.0 10^3/uL Monocytes # (Auto) 0.4 0.0-1.0 10^3/uL Eosinophils # (Auto) 0.2 0.0-0.3 10^3/uL Basophils # (Auto) 0.0 0.0-0.1 10^3/uL Immature Granulocyte # (Auto) 0.0 0.0-0.1 10^3/uL Sodium Level 137 135-145 MMOL/L Potassium Level 3.9 3.6-5.0 MMOL/L Chloride Level 108 H 98-107 MMOL/L Carbon Dioxide Level 20 L 21-32 MMOL/L Anion Gap 9 5-14 MMOL/L Blood Urea Nitrogen 11 7-18 MG/DL Creatinine 0.80 0.60-1.30 MG/DL Estimat Glomerular Filtration Rate 97 BUN/Creatinine Ratio 14 Glucose Level 92 70-105 MG/DL Calcium Level 8.5 8.5-10.1 MG/DL Phosphorus Level 2.7 2.3-4.7 MG/DL Magnesium Level 2.0 1.6-2.4 MG/DL Diagnosis/Problems Diagnosis/Problems (1) Chest pain Status: Acute Assessment & Plan: Exact etiology unclear. She had a CT angiogram of the chest that did not show any evidence of aortic dissection. She underwent a nuclear stress test earlier today that was normal. Her chest discomfort may have been related to the hypertensive emergency. Now that her blood pressure is better controlled, she is pain-free. From a cardiac standpoint, she can be discharged home. There is no indication for cardiac catheterization at this time. (2) Hypertensive emergency without congestive heart failure Status: Acute Assessment & Plan: She had markedly elevated blood pressure at the outside h [facility]spital. Her blood pressure is now improved on labetalol 400 mg twice a day and amlodipine 5 mg daily. She should be discharged with this combination of medications. I have asked her to follow-up with me in the office in 1 month to make sure her blood pressures remain well controlled. (3) Troponin level elevated Status: Acute Assessment & Plan: As above, her nuclear stress test was normal. I suspect she had a type II non-ST elevation myocardial infarction secondary to the hypertensive urgency. As above, there is no indication for cardiac catheterization. (4) Abnormal ECG Assessment & Plan: As above, her nuclear stress test was normal. As such, no additional testing is indicated for this abnormal electrocardiogram at this time. (5) Primary hypertension Status: Acute Assessment & Plan: As above. (6) Obesity Status: Chronic Assessment & Plan: She needs to work on weight loss. (7) Cigarette smoker Status: Chronic Assessment & Plan: She needs to quit smoking. She was counseled in this regard. JOSE E PAZ JR, MD Mar 22, 2021 16:08
[2021-03-22] MEDS ORDERED: AMLO-250 PO (16:55)
--- NOTE | 2021-03-22 16:56 | Discharge Inst-Simple/Standard ---
Discharge Inst-Standard Discharge Medications New, Converted or Re-Newed RX: Transmitted to Pharmacy Patient Instructions/Follow Up Plan of Care/Instructions/FU: Please continue to take your medications as written. Please follow up with your primary care doctor and Dr Krishnamurthy to follow up this hospital stay. Activity as Tolerated: Yes Discharge Diet: Cardiac Diet Return to The Hospital For: Chest pain, shortness of breath, heart racing, severe headache, if you feel you are getting worse. DESMOND CARREON MD Mar 22, 2021 16:56
--- NOTE | 2021-03-22 16:59 | Discharge Summary ---
Diagnosis/Chief Complaint Date of Admission Mar 21, 2021 at 04:42 Date of Discharge Discharge Date: Mar 22, 2021 Admission Diagnosis Hypertensive emergency Primary Care No,Local Physician Discharge Diagnosis (1) Chest pain Status: Acute Assessment & Plan: Exact etiology unclear. She had a CT angiogram of the chest that did not show any evidence of aortic dissection. She underwent a nuclear stress test earlier today that was normal. Her chest discomfort may have been related to the hypertensive emergency. Now that her blood pressure is better controlled, she is pain-free. From a cardiac standpoint, she can be discharged home. There is no indication for cardiac catheterization at this time. (2) Hypertensive emergency without congestive heart failure Status: Acute Assessment & Plan: She had markedly elevated blood pressure at the outside hospital. Her blood pressure is now improved on labetalol 400 mg twice a day and amlodipine 5 mg daily. She should be discharged with this combination of medications. I have asked her to follow-up with me in the office in 1 month to make sure her blood pressures remain well controlled. (3) Troponin level elevated Status: Acute Assessment & Plan: As above, her nuclear stress test was normal. I suspect she had a type II non-ST elevation myocardial infarction secondary to the hypertensive urgency. As above, there is no indication for cardiac catheterization. (4) Abnormal ECG Assessment & Plan: As above, her nuclear stress test was normal. As such, no additional testing is indicated for this abnormal electrocardiogram at this time. (5) Primary hypertension Status: Acute Assessment & Plan: As above. (6) Obesity Status: Chronic Assessment & Plan: She needs to work on weight loss. (7) Cigarette smoker Status: Chronic Assessment & Plan: She needs to quit smoking. She was counseled in this regar d. Discharge Summary Discharge Physical Exam Allergies: Coded Allergies: No Known Drug Allergies (Unverified , 11/13/15) Vitals & I&Os Vital Signs Date Time Temp Pulse Resp B/P (MAP) Pulse Ox O2 Delivery O2 Flow Rate FiO2 03/22/21 17:28 36.2 68 18 156/94 97 Room Air General Appearance: No Apparent Distress, WD/WN Respiratory: Lungs Clear, No Respiratory Distress Cardiovascular: Regular Rate, Rhythm, No Murmur Gastrointestinal: Normal Bowel Sounds, Soft Neurologic/Psychiatric: Alert, Oriented x3 Hospital Course Patient was admitted secondary to hypertensive emergency with elevated troponin. She was admitted to the ICU and required a Cardene drip. She underwent stress testing which was negative. She is able to be titrated off of her Cardene drip and restarted on her home labetalol and amlodipine was added. Blood pressure was much improved with this regimen. She was advised to follow-up with her primary care doctor for further management of her hypertension. Labs (last 24 hrs) Microbiology 03/21/21 MRSA Screen - Final, Complete MRSA not isolated Patient resulted labs reviewed. Imaging: Reviewed Imaging Report Discussion & Recommendations Discharge Planning: >30 minutes discharge planning Discharge Home Medications: Active Scripts Active Amlodipine Besylate 5 Mg Tablet 5 Mg PO DAILY Labetalol HCl 200 Mg Tablet 400 Mg PO BID Reported Aleve (Naproxen Sodium) 220 Mg Capsule 440 Mg PO BID PRN Instructions to patient/family Please see electronic discharge instructions given to patient. DESMOND CARREON MD Mar 22, 2021 16:59
[2021-03-22 17:28] VITALS: BP 156/94
== END 2021-03-22 17:20 | disposition home or self-care (01) | DRG 282 ==
LOC: ICU 04:42
PROVIDERS: ADMIT Internal Medicine; ATTEND Internal Medicine
DX: I16.1 Hypertensive emergency (principal); I21.A1 Myocardial infarction type 2; I10 Essential (primary) hypertension; F17.210 Nicotine dependence, cigarettes, uncomplicated; E66.9 Obesity, unspecified; Z68.39 Body mass index [BMI] 39.0-39.9, adult; E04.1 Nontoxic single thyroid nodule; K80.20 Calculus of gallbladder without cholecystitis without obstruction; E66.01 Morbid (severe) obesity due to excess calories; G89.29 Other chronic pain; M25.519 Pain in unspecified shoulder; M54.9 Dorsalgia, unspecified
CPT/HCPCS: 36415; 70450; 71275; 74175; 78452; 80048; 80061; 83036; 83735; 84100; 84443; 84484; 85025; 87081; 93005; 93017; 93306